=== PATIENT | female | born 1980 | race Caucasian/White ===

== ENCOUNTER 2025-02-13 21:33 | Emergency (ER) | payer SELFPAY ==
[2025-02-13 21:38] VITALS: BP 147/87; PULSE 75; RESP 16; TEMP 36.6; O2SAT 99; BMI 35.2
--- NOTE | 2025-02-13 22:00 | XRR_ITS ---
PROCEDURE INFORMATION: Exam: XR Lumbosacral Spine Exam date and time: 02/13/2025 10:04 PM Age: 44 years old Clinical indication: Injury or trauma; Fall; Blunt trauma (contusions or hematomas); Additional info: Low back pain/trauma TECHNIQUE: Imaging protocol: Radiologic exam of the lumbosacral spine. Views: 2 or 3 views. COMPARISON: No relevant prior studies available. FINDINGS: Bones/joints: Mild degenerative changes of the lumbar and lower thoracic vertebrae with endplate spurring. Soft tissues: Unremarkable. Organs: IUD. Other findings: Motion artifact limits exam. Two views. XR/XR lumbar spine 2-3V* [id number] IMPRESSION: No definite acute fracture.
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
[2025-02-13] MEDS: orphenadrine 30 mg/mL Inj 2 mL 60 MG IM (22:21)
[2025-02-13] MEDS: HYDROcodone-acetaminophen 5-325 mg Tablet 1 TAB PO (22:21)
== END 2025-02-13 23:00 | disposition home or self-care (01) ==
PROVIDERS: Emergency Provider Physician Assistant
DX: S40.022A Contusion of left upper arm, initial encounter (principal); S40.021A Contusion of right upper arm, initial encounter; S30.0XXA Contusion of lower back and pelvis, initial encounter; S00.212A Abrasion of left eyelid and periocular area, initial encounter; M54.2 Cervicalgia; Y35.811A Legal intervention involving manhandling, law enforcement official injured, initial encounter
CPT/HCPCS: 72100; 96372; 99284; J1885; J2360; J9999